=== PATIENT | female | born 1950 | race Caucasian/White ===

== ENCOUNTER 2019-03-26 11:24 | Emergency (ER) | payer MEDICARE, OTHER ==
--- OUTSIDE RECORDS SUMMARY | 2019-03-26 11:43 | XMS REPORT | Continuity of Care Document ---
:1950 External Reference #:[id number] Author Name Stephanie Smiley PA Address [address] [place] [address]. 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 Benign essential hypertension Lexi Adames, MSN, Onset: 10/05/2012 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 Malaise and fatigue Lexi Adames, LAYLA, Onset: 10/05/2012 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 Electrocardiogram abnormal Lexi Adames, LAYLA, Onset: 10/05/2012 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 Social History Type Date Description Comments Sex Unknown Tobacco Use Start: Unknown Never Smoked Cigarettes ETOH Use Denies alcohol use Tobacco Use Start: Unknown Patient has never smoked Smoking Status Reviewed: 03/08/19 Patient has never smoked Allergies, Adverse Reactions, Alerts Active Allergies Reaction Severity Comments Date Penicillin 10/05/2012 Sulfa Drugs 10/05/2012 Ceclor 10/05/2012 Medications Active Medications SIG Qnty Indications Ordering Date Provider Zoloft po qd Unknown 100mg Tablets Zocor 1 po qd 90tabs Unknown 40mg Tablets Nexium 1 po qd 90caps Unknown 40mg Capsules [address] Vitamin D3 1 po qd Unknown 1000Unit Capsules Trokendi XR 1 po qd Unknown 200mg Caps ER 24HR Meloxicam 1 by mouth every Unknown 15mg Tablets day Trokendi XR one every day Unknown 50mg Caps ER 24HR Cannabis Oil Capsules prn Unknown Buspirone HCL Take One Tablet Unknown 5mg Tablets By Mouth Twice A Day For Anxiety Mometasone Furoate [place] Two Sprays Unknown In Each Nostril 50mcg/Act Suspension Daily as Directed Triamcinolone Apply 1-2 Times Unknown Acetonide Daily To Left 0.1% Cream Hand prn For Itch Esomeprazole Magnesium Take One Capsule Unknown By Mouth Every 40mg Capsules DR Day Medications Administered in Office Medication SIG Qnty Indications Ordering Provider Date Depomedrol 40mg/1cc Stephanie Smiley PA 03/09/2019 (methylprednisolone acetate) Injection Immunizations Description No Information Available Vital Signs Date Vital Result Comment 03/09/2019 8:41am BP Systolic Sitting Left Arm 132 mmHg BP Diastolic Sitting Left Arm 86 mmHg Body Temperature 98.0 F Heart Rate 86 /min Height 60.5 inches 5'0.50" Weight 181.00 lb BMI (Body Mass Index) 34.8 kg/m2 BSA (Body Surface Area) 1.80 m2 [place] body weight in kilograms 47 kg O2 % BldC Oximetry 98 % 09/06/2015 10:08am BP Systolic Sitting Right Arm 130 mmHg BP Diastolic Sitting Right Arm 82 mmHg Heart Rate 68 /min Respiratory Rate 16 /min Height 61 inches 5'1" Weight 189.00 lb BMI (Body Mass Index) 35.7 kg/m2 BSA (Body Surface Area) 1.84 m2 Results Description No Information Available Procedures Date Code Description Status 03/09/2019 76445 Radiology, Knee 3 Views Completed 03/09/2019 48675 Asp./Injection major joint Completed 08/28/2012 62785953 Mammogram Completed Medical Devices Description No Information Available Encounters Type Date Location Provider Dx Diagnosis Office Visit 03/09/2019 [facility] Stephanie Smiley, M25.562 Pain in left knee 8:45a CLARITZA M17.12 Unilateral primary osteoarthritis, left knee Assessments Date Code Description Provider 03/09/2019 M25.562 Pain in left knee Stephanie Smiley PA 03/09/2019 M17.12 Unilateral primary osteoarthritis, left knee Stephanie Smiley PA Plan of Treatment Future Appointment(s):04/20/2019 8:30 am - Stephanie Smiley PA at [facility]/09/2019 - Stephanie Smiley, PAM25.562 Pain in left kneeM17.12 Unilateral primary osteoarthritis, left kneeComments:I have explained that she does have arthritis in her knee, but we will proceed with conservative management at this time especially since she has a D&C coming up. She is not to be using any oral anti-inflammatories for the next 10 days because of this procedure. I have recommended a steroid injection and she does wish to proceed, verbal consent was obtained for a left knee injection. Patient was injected today into the left knee with 80 mg Depo-Medrol and 6 cc of 0.5% Marcaine after sterile prep with chlorhexidine. Patient tolerated the injection well and was dressed with a Band-Aid. I also provided her with information regarding Euflexxa injections. She'll start a course of physical therapy and a brace was provided. Patient will return to the office for recheck in 6 weeks. Functional Status Functional Condition Comment Date Status Independent with all ADL's Active Glasses Active Mental Status Description No Information Available Referrals Description No Information Available
--- OUTSIDE RECORDS SUMMARY | 2019-03-26 11:43 | XMS REPORT | Continuity of Care Document ---
:1950 External Reference #:[id number] Author Name CLARITZA Carmen (transmitted by agent of provider Demarcus Thorpe) Address [address] [place] [address] Care Team Providers Name Role Phone Robel Garcia MD - Care Team Information Quality Control Auditor [phone] Cardiovascular Disease Alannah Negron PA - Physician Military Science Teacher Care Team Information Quality Control Auditor Hector Medellin MD - Nephrology Care Team Information Quality Control Auditor [phone] Jim Zaragoza MD - Dermatology Care Team Information Quality Control Auditor Garry Gordon MD - Urology Care Team Information Quality Control Auditor [phone] Mode Pisano MD - Orthopaedic Care Team Information Quality Control Auditor [phone] Surgery Madelin Coello M.D. - Adult Care Team Information Quality Control Auditor [phone] Reconstructive Orthopaedic Surgery Oscar Johnson MD - Orthopaedic Care Team Information Quality Control Auditor [phone] Surgery Trell Nowak MD - Cardiovascular Care Team Information Quality Control Auditor Disease [place], [place] MD Eliana - Gynecology Care Team Information Quality Control Auditor [phone] Problems Active Problems Provider Date Localized, primary osteoarthritis Madelin Coello M.D. Onset: 07/21/2015 Arthroplasty of knee Madelin Coello M.D. Onset: 12/22/2015 Localized, primary osteoarthritis of the pelvic Madelin Coello M.D. Onset: region and thigh Anxiety state Alannah Negron PA Onset: 05/02/2011 Benign essential hypertension Alannah Negron PA Onset: 05/02/2011 Gastroesophageal reflux disease Alannah Negron PA Onset: 05/02/2011 Hyperlipidemia Alannah Negron PA Onset: 05/02/2011 Irritable bowel syndrome Alannah Negron PA Onset: 05/02/2011 Diverticular disease of colon Onset: 05/02/2011 Pure hypercholesterolemia Onset: 05/02/2011 Allergic rhinitis CLARITZA Carmen Onset: 09/07/2018 Hearing loss CLARITZA Carmen Onset: 09/07/2018 Social History Type Date Description Comments Sex Unknown Tobacco Use Start: Unknown Never Smoked Cigarettes ETOH Use Never used alcohol Tobacco Use Reviewed: 03/05/16 Patient has never smoked Recreational Drug Use Denies Drug Use Smoking Status Reviewed: 03/04/19 Patient has never smoked Exercise Type/Frequency Does not exercise Tattoo/Piercing Pierced ears Tattoo/Piercing Negative For Tattoo Allergies, Adverse Reactions, Alerts Active Allergies Reaction Severity Comments Date Cefaclor 07/09/2011 Sulfa Antibiotics 07/21/2015 Penicillin 07/21/2015 Medications Active Medications SIG Qnty Indications Ordering Provider Date Avapro 1 by mouth every 90tabs I10 Chang 02/19/2018 150mg Tablets day MD Jorge Buspirone HCL one tablet twice 180tabs F41.9 Chang 12/08/2017 5mg a day for anxiety MD Jorge Tablets Xyzal Allergy 24HR one pill daily 30tabs J30.9 Chang 06/05/2017 MD Jorge 5mg Tablets Mobic one every day 14tabs S86.912A Jorge 06/04/2016 15mg Tablets with food MD Chang Mometasone Furoate [place] Two Sprays 51units J30.9 Chang 03/05/2016 In Each Nostril MD Jorge 50mcg/Act Suspension Daily as Directed Sertraline HCL Take One Tablet 90tabs F41.1 Chang 06/01/2013 100mg By Mouth Every MD Jorge Tablets Day Diovan 1 by mouth every Unknown 320mg Tablets day Zoloft 1 by mouth every Unknown 100mg Tablets day Vitamin D-3 1 by mouth every Unknown 1000Unit day Capsules Nexium 1 by mouth every 90caps Chang 40mg Capsules day MD DR Radha Patel XR 1 at bedtime Unknown 200mg Caps ER 24HR Trokendi XR take 1 at bedtime Unknown 50mg Caps ER 24HR Calcium 600 1 by mouth every Unknown 600mg day Tablets Zocor 1 by mouth every 90tabs Chang 40mg Tablets night at bedtime MD Jorge Medications Administered in Office Medication SIG Qnty Indications Ordering Provider Date Depomedrol 40MG Madelin Coello M.D. 05/15/2016 Injection Allergy Injection - Multiple Unknown 04/17/1999 Injection Allergy Injection - Multiple Unknown 04/02/1999 Injection Allergy Injection - Multiple Chang Patel MD 03/13/1999 Injection Allergy Injection - Multiple Unknown 03/06/1999 Injection Allergy Injection - Multiple Unknown 02/26/1999 Injection Allergy Injection - Multiple Unknown 02/19/1999 Injection Allergy Injection - Multiple Unknown 01/22/1999 Injection Allergy Injection - Multiple Unknown 01/12/1999 Injection Allergy Injection - Multiple Chang Patel MD 12/22/1998 Injection Allergy Injection - Multiple Unknown 12/08/1998 Injection Allergy Injection - Multiple Unknown 12/01/1998 Injection Allergy Injection - Multiple Unknown 11/22/1998 Injection Allergy Injection - Multiple Unknown 11/16/1998 Injection Allergy Injection - Multiple Unknown 10/27/1998 Injection Allergy Injection - Multiple Unknown 10/12/1998 Injection Allergy Injection - Multiple Chang Patel MD 10/05/1998 Injection Allergy Injection - Multiple Unknown 09/07/1998 Injection Allergy Injection - Multiple Unknown 08/24/1998 Injection Allergy Injection - Multiple Unknown 08/17/1998 Injection Allergy Injection - Multiple Unknown 08/10/1998 Injection Allergy Injection - Multiple Unknown 07/20/1998 Injection Allergy Injection - Annabella Patel MD 07/07/1998 Injection Allergy Injection - Multiple Unknown 06/29/1998 Injection Allergy Injection - Annabella Patel MD 06/15/1998 Injection Allergy Injection - Multiple Chang Patel MD 06/08/1998 Injection Immunizations CPT Code Status Date Vaccine Lot # 47084 Given 03/15/2016 Fluzone High Dose 87755 Given 12/01/2014 Pneumococcal Conjugate Vaccine 13 Valent For Intramuscular Use 33407 Given 06/17/2012 Influenza Virus 3Yrs & Over 38878 Given 04/12/1997 Flu Vaccine 27802 Given 04/12/1993 Flu Vaccine Vital Signs Date Vital Result Comment 03/04/2019 12:59pm Height 60 inches 5'0" Weight 180.00 lb BP Systolic Sitting 108 mmHg BP Diastolic Sitting 50 mmHg Respiratory Rate 12 /min Body Temperature 97.8 F BMI (Body Mass Index) 35.1 kg/m2 12/08/2018 1:00pm Weight 181.38 lb BP Systolic Sitting 124 mmHg BP Diastolic Sitting 60 mmHg Results Description No Information Available Procedures Date Code Description Status 06/12/2018 35113742 Mammogram Completed 08/28/2017 [id number] Bone Mineral Density Test Completed 06/30/2010 80175431 Colonoscopy Completed Medical Devices Description No Information Available Encounters Type Date Location Provider Dx Diagnosis Office Visit 12/08/2018 [facility] CLARITZA Carmen I10 Essential ( primary) 1:00p hypertension E78.5 Hyperlipidemia, unspecified J30.89 Other allergic rhinitis F41.9 Anxiety disorder, unspecified Office Visit 09/22/2018 [facility] Dermatology Jim Zaragoza, B02.9 Zoster without 12:50p AT [place] complications D22.9 Melanocytic nevi, unspecified L82.1 Other seborrheic keratosis Z08 Encntr for follow-up exam after trtmt for malignant neoplasm Z85.828 Personal history of other malignant neoplasm of skin Office Visit 09/07/2018 1:00p [facility] Primary Alannah Negron K21.9 Gastro- esophageal Care [place] reflux disease without esophagitis E78.5 Hyperlipidemia, unspecified J30.89 Other allergic rhinitis M19.90 Unspecified osteoarthritis, unspecified site Assessments Date Code Description Provider 03/04/2019 Z01.818 Encounter for other preprocedural examination CLARITZA Carmen 03/04/2019 N95.0 Postmenopausal bleeding CLARITZA Carmen 12/08/2018 I10 Essential (primary) hypertension CLARITZA Carmen 12/08/2018 E78.5 Hyperlipidemia, unspecified CLARITZA Carmen 12/08/2018 J30.89 Other allergic rhinitis CLARITZA Carmen 12/08/2018 F41.9 Anxiety disorder, unspecified CLARITZA Carmen 09/22/2018 B02.9 Zoster without complications Jim Zaragoza MD 09/22/2018 D22.9 Melanocytic nevi, unspecified Jim Zaragoza MD 09/22/2018 L82.1 Other seborrheic keratosis Jim Zaragoza MD 09/22/2018 Z08 Encounter for follow-up examination after Jim Zaragoza MD completed treatmen 09/22/2018 Z85.828 Personal history of other malignant neoplasm of Jim Zaragoza MD skin 09/07/2018 K21.9 Gastro-esophageal reflux disease without CLARITZA Carmen esophagitis 09/07/2018 E78.5 Hyperlipidemia, unspecified CLARITZA Carmen 09/07/2018 J30.89 Other allergic rhinitis CLARITZA Carmen 09/07/2018 M19.90 Unspecified osteoarthritis, unspecified site CLARITZA Carmen Plan of Treatment Future Appointment(s):04/07/2019 8:15 am - CLARITZA Carmen at [facility] 2:00 pm - Jim Zaragoza MD at [facility] Dermat[facility] AT [facility]14/05/2019 - Alannah Negron PAZ01.818 Encounter for other preprocedural examinationNew Labs:CBC Auto Diff, Ordered: 03/04/19Basic Metabolic Panel, Ordered: 03/04/19New Orders: EKG, Ordered: 03/04/19N95.0 Postmenopausal bleeding Functional Status Functional Condition Comment Date Status Partial upper dentures Active Bifocal glasses Active Hearing Aid in Both ears Active Mental Status Description No Information Available Referrals Description No Information Available
--- OUTSIDE RECORDS SUMMARY | 2019-03-26 11:43 | XMS REPORT | Continuity of Care Document ---
:1950 External Reference #:[id number] Author Name CLARITZA Carmen (transmitted by agent of provider Demarcus Thorpe) Address [address] [place] [address] Care Team Providers Name Role Phone Robel Garcia MD - Care Team Information Collar Cutter [phone] Cardiovascular Disease Alannah Negron PA - Physician Banking Services Officer Care Team Information Collar Cutter Hector Medellin MD - Nephrology Care Team Information Collar Cutter Jim Zaragoza MD - Dermatology Care Team Information Collar Cutter Garry Gordon MD - Urology Care Team Information Collar Cutter [phone] Mode Pisano MD - Orthopaedic Care Team Information Collar Cutter [phone] Surgery Madelin Coello M.D. - Adult Care Team Information Collar Cutter [phone] Reconstructive Orthopaedic Surgery Oscar Johnson MD - Orthopaedic Care Team Information Collar Cutter Surgery Trell Nowak MD - Cardiovascular Care Team Information Collar Cutter Disease [place], [place] MD Eliana - Gynecology Care Team Information Collar Cutter [phone] Problems Active Problems Provider Date Localized, primary [...] Medications SIG Qnty Indications Ordering Provider Date CBD Oil Chang 03/08/2019 MD Jorge Avapro 1 by mouth every 90tabs I10 Chang 02/19/2018 150mg Tablets day MD Jorge Buspirone HCL one tablet twice 180tabs F41.9 Chang 12/08/2017 5mg a day for anxiety MD Jorge Tablets Xyzal Allergy 24HR one pill daily 30tabs J30.9 Chang 06/05/2017 MD Jorge 5mg Tablets Mobic one every day 14tabs S86.912A Jorge 06/04/2016 15mg Tablets with food MD Chang Mometasone Furoate [place] Two Sprays 51units J30.9 Chang 03/05/2016 In [...] Multiple Unknown 07/20/1998 Injection Allergy Injection - Multiple Chang Patel MD 07/07/1998 Injection Allergy Injection - Multiple Unknown 06/29/1998 Injection Allergy Injection - Multiple Chang Patel MD 06/15/1998 Injection Allergy Injection - Multiple Chang Patel MD 06/08/1998 Injection Immunizations CPT Code Status Date Vaccine Lot # [id number] Given 03/15/2016 Fluzone High Dose 94354 Given 12/01/2014 Pneumococcal Conjugate Vaccine 13 Valent For Intramuscular Use 38342 Given 06/17/2012 Influenza Virus 3Yrs & Over 07531 Given 04/12/1997 Flu Vaccine 95461 Given 04/12/1993 Flu Vaccine Vital Signs Date Vital Result Comment 03/04/2019 12:59pm Height 60 inches 5'0" Weight 180.00 lb BP Systolic Sitting 108 mmHg BP Diastolic Sitting 50 mmHg Respiratory Rate 12 /min Body Temperature 97.8 F BMI (Body Mass Index) 35.1 kg/m2 12/08/2018 1:00pm Weight 181.38 lb BP Systolic Sitting 124 mmHg BP Diastolic Sitting 60 mmHg Results Test Date Facility Test Result H/L Range Note CBC Auto 03/04/2019 [facility] White Blood 3.6 10^3/uL Normal 3.5-10.[address] [place] [address] [phone] Red Blood Count 4.51 10^6/uL Normal 3.70-4.87 Hemoglobin 13.3 g/dL Normal 12.0-16.0 Hematocrit 39 % Normal 35-47 Mean Corpuscular Volume 87 fL Normal 80-97 Mean Corpuscular Hemoglobin 30 pg Normal 27-31 Mean Corpuscular HGB Conc 34 g/dL Normal 31-36 Red Cell Distribution Width 14 % Normal 10-15 Platelet Count 100 10^3/uL Low 150-450 Mean Platelet Volume 9.3 fL Normal 7.4-10.4 Abs Neutrophils 2.2 10^3/uL Normal 1.5-7.7 Abs Lymphocytes 1.0 10^3/uL Normal 1.0-4.8 Abs Monocytes 0.2 10^3/uL Normal 0-0.8 Abs Eosinophils 0.2 10^3/uL Normal 0-0.6 Abs Basophils 0.0 10^3/uL Normal 0-0.2 Abs Nucleated RBC 0.0 10^3/uL Granulocyte % 61.3 % Lymphocyte % 27.1 % Monocyte % 6.8 % Eosinophil % 4.1 % Basophil % 0.7 % Nucleated Red Blood Cells % 0.2 Basic Metabolic 03/04/2019 [facility] Sodium 142 mmol/L Normal 135-[address] [place] [address] [phone] Potassium 4.2 mmol/L Normal 3.5-5.0 Co2 Carbon Dioxide 26 mmol/L Normal 22-32 Glucose 102 mg/dL High 70-100 Blood Urea Nitrogen 29 mg/dL High 6-24 Creatinine 0.99 mg/dL High 0.51-0.95 BUN/Creatinine Ratio 29.3 High 8-20 Calcium 9.2 mg/dL Normal 8.6-10.3 Egfr Non- 55.6 >60 Egfr 67.3 >60 1 Chloride 112 mmol/L High 101-111 Anion Gap 4 mmol/L Normal 2-11 1 Because ethnic data is not always readily available, this report includes an eGFR for both -Americans and non- Americans. The National Kidney Disease Education Program (NKDEP) does not endorse the use of the MDRD equation for patients that are not between the ages of 18 and 70, are , have extremes of body size, muscle mass, or nutritional status, or are non- or non-. According to the National Kidney Foundation, irrespective of diagnosis, the stage of the disease is based on the level of kidney function: Stage Description GFR(mL/min/1.73 m(2)) 1 Kidney damage with normal or decreased GFR 90 2 Kidney damage with mild decrease in GFR 60-89 3 Moderate decrease in GFR 30-59 4 Severe decrease in GFR 15-29 5 Kidney failure <15 (or dialysis) Procedures Date Code Description Status 03/04/2019 12034 EKG Tracing & Interpretation Completed 06/12/2018 [id number] Mammogram Completed 08/28/2017 276571610 Bone Mineral Density Test Completed 06/30/2010 98227947 Colonoscopy Completed Medical Devices Description No Information Available Encounters Type Date Location Provider Dx Diagnosis Office Visit 03/04/2019 [facility] CLARITZA Carmen Z01.818 Encounter for other 1:00p preprocedural examination N95.0 Postmenopausal bleeding I10 Essential (primary) hypertension E78.5 Hyperlipidemia, unspecified J30.89 Other allergic rhinitis F43.23 Adjustment disorder with mixed anxiety and depressed mood M19.90 Unspecified osteoarthritis, unspecified site K21.9 Gastro-esophageal reflux disease without esophagitis Office Visit 12/08/2018 1:00p [facility] Primary Care CLARITZA Carmen I10 Essential (primary) hypertension E78.5 Hyperlipidemia, unspecified J30.89 Other allergic rhinitis F41.9 Anxiety disorder, unspecified Office Visit 09/22/2018 [facility] Dermatology Jim Zaragoza, B02.9 Zoster without 12:50p AT [place] complications D22.9 Melanocytic nevi, unspecified L82.1 Other seborrheic keratosis Z08 Encntr for follow-up exam after trtmt for malignant neoplasm Z85.828 Personal history of other malignant neoplasm of skin Assessments Date Code Description Provider 03/04/2019 Z01.818 Encounter for other preprocedural examination CLARITZA Carmen 03/04/2019 N95.0 Postmenopausal bleeding CLARITZA Carmen 03/04/2019 I10 Essential (primary) hypertension CLARITZA Carmen 03/04/2019 E78.5 Hyperlipidemia, unspecified CLARITZA Carmen 03/04/2019 J30.89 Other allergic rhinitis CLARITZA Carmen 03/04/2019 F43.23 Adjustment disorder with mixed anxiety and CLARITZA Carmen depressed mood 03/04/2019 M19.90 Unspecified osteoarthritis, unspecified site CLARITZA Carmen 03/04/2019 K21.9 Gastro-esophageal reflux disease without CLARITZA Carmen esophagitis 12/08/2018 I10 Essential (primary) hypertension CLARITZA Carmen [...] malignant neoplasm of Jim Zaragoza MD skin Plan of Treatment Future Appointment(s):04/07/2019 8:15 am - CLARITZA Carmen at [facility] Primary Care 2:00 pm - Jim Zaragoza MD at [facility] Dermatology AT Kgwvpdzc57/05/2019 - Alannah Negron PAZ01.818 Encounter for other preprocedural examinationNew Orders:EKG , Ordered: 03/04/19N95.0 Postmenopausal svxeisseQ29 Essential (primary) kudlhqjnuhcwG35.5 Hyperlipidemia, lpnzmguuhuzQ57.89 Other allergic lgwkkuraZ05.23 Adjustment disorder with mixed anxiety and depressed moodM19.90 Unspecified osteoarthritis, unspecified siteK21.9 Gastro-esophageal reflux disease without esophagitis Functional Status Functional Condition Comment Date Status Partial upper dentures Active Bifocal glasses Active Hearing Aid in Both ears Active Mental Status Description No Information Available Referrals Description No Information Available
[2019-03-26 11:46] VITALS: BP 145/73
--- NOTE | 2019-03-26 12:19 | UC ---
Complaint Female HPI - HPI Summary HPI Summary: Pt presents with c/o burning with urination X 5 days. Pt had D&C at [facility] on 03/18/19. pt reports that she has had urinary frequencya nd dysuria since procedure. - History Of Current Complaint Chief Complaint: UCGU Stated Complaint: URINARY Time Seen by Provider: 03/26/19 12:04 Hx Obtained From: Patient ?: No Onset/Duration: Sudden Onset, Lasting Days, Still Present Timing: Constant Severity Initially: Mild Severity Currently: Mild Pain Intensity: 1 Character: Dull, Burning Aggravating Factor(s): Urination Alleviating Factor(s): Nothing Associated Signs And Symptoms: Positive: Back Pain - Risk Factors Ectopic Risk Factor: Prior Pelvic Surgery Ovarian Torsion Risk Factor: Negative - Allergies/Home Medications Allergies/Adverse Reactions: Allergies Allergy/AdvReac Type Severity Reaction Status Date / Time Penicillins Allergy Anaphylatic Verified 03/26/19 11:48 Shock Sulfa (Sulfonamide Allergy Hives Verified 03/26/19 11:48 Antibiotics) LATEX POWDER Allergy HIVES FROM Uncoded 03/26/19 11:48 POWDER IN LATEX GLOVES Home Medications: Home Medications Buspirone HCl 5 mg PO BID 03/26/19 [History Confirmed 03/26/19] Cholecalciferol (Vitamin D3) [Vitamin D3] 1,000 unit PO DAILY 03/26/19 [History Confirmed 03/26/19] Topiramate [Topiramate ER 200 mg cap] 200 mg PO BEDTIME 03/26/19 [History Confirmed 03/26/19] PMH/Surg Hx/FS Hx/Imm Hx Previously Healthy: Yes Other GI/ History: D&C on 03/18/19 - Surgical History Surgical History: Yes Surgery Procedure, Year, and Place: 1999 LEFT KNEE SCOPE [place]. 2007 C5-6 CERVICAL FUSION [place]. [address] [facility], Abdominal hernia repair 09/17/13,D&C-02/2019, right knee 2015 - Family History Known Family History: Positive: Cardiac Disease - Social History Occupation: Retired Lives: With Family Alcohol Use: None Substance Use Type: None Smoking Status (MU): Never Smoked Tobacco Have You Smoked in the Last Year: No - Immunization History Most Recent Influenza Vaccination: 2012 Most Recent Tetanus Shot: 2012 Most Recent Pneumonia Vaccination: 2010 Vaccination Up to Date: Yes Review of Systems All Other Systems Reviewed And Are Negative: Yes Constitutional: Positive: Negative Skin: Positive: Negative Eyes: Positive: Negative ENT: Positive: Negative Respiratory: Positive: Negative Cardiovascular: Positive: Negative Gastrointestinal: Positive: Negative Genitourinary: Positive: Dysuria, Urgency Motor: Positive: Negative Neurovascular: Positive: Negative Musculoskeletal: Positive: Other: - low back ache Neurological: Positive: Negative Psychological: Positive: Negative Is Patient Immunocompromised?: No Physical Exam Triage Information Reviewed: Yes Appearance: Well-Appearing Vital Signs: Initial Vital Signs Temp 97.9 F 03/26/19 11:40 Pulse 58 03/26/19 11:40 Resp 16 03/26/19 11:40 BP 145/73 03/26/19 11:40 Pulse Ox 100 03/26/19 11:40 Vital Signs Reviewed: Yes Eye Exam: Normal ENT Exam: Normal Dental Exam: Normal Neck exam: Normal Respiratory Exam: Normal Cardiovascular Exam: Normal Abdominal Exam: Normal Abdomen Description: Positive: Nontender Musculoskeletal Exam: Normal Neurological Exam: Normal Psychological Exam: Normal Skin Exam: Normal Complaint Female Dx - Differential Dx/Diagnosis Differential Diagnosis/HQI/PQRI: Urinary Tract Infection, Other - urethritis Provider Diagnosis: UTI (urinary tract infection), Dysuria Discharge ED - Sign-Out/Discharge Documenting (check all that apply): Patient Departure All imaging exams completed and their final reports reviewed: No Studies - Discharge Plan Condition: Stable Disposition: HOME Prescriptions: Nitrofurantoin Monohyd/M-Cryst [Macrobid 100 mg Capsule] 100 mg PO Q12H #14 cap Patient Education Materials: Urinary Tract Infection in Women (ED) Referrals: Chang Patel MD [Primary Care Provider] - If Needed Additional Instructions: Please follow up with your PCP and your Satellite Tv Installer provider as needed. - Billing Disposition and Condition Condition: STABLE Disposition: Home - Attestation Statements Provider Attestation: I was available for consult. This patient was seen by the DEEPA. The patient was not presented to, seen by, or examined by me. Luis Kaufman MD
--- NOTE | 2019-03-28 07:22 | UC ---
- Progress Note Progress Note: Urine culture was negative. Sx were following a Doubler Operator procedure, recommend she finish all the antibiotics. If still with sx, follow up with Doubler Operator provider. Course/Dx - Diagnoses Provider Diagnoses: UTI (urinary tract infection), Dysuria Discharge ED - Sign-Out/Discharge Documenting (check all that apply): Post-Discharge Follow Up All imaging exams completed and their final reports reviewed: No Studies - Discharge Plan Condition: Stable Disposition: HOME Prescriptions: Nitrofurantoin Monohyd/M-Cryst [Macrobid 100 mg Capsule] 100 mg PO Q12H #14 cap Patient Education Materials: Urinary Tract Infection in Women (ED) Referrals: Chang Patel MD [Primary Care Provider] - If Needed Additional Instructions: Please follow up with your PCP and your Doubler Operator provider as needed. - Billing Disposition and Condition Condition: STABLE Disposition: Home
== END 2019-03-26 12:29 | disposition home or self-care (01) ==
LOC: UCCORT 11:24
DX: N39.0 Urinary tract infection, site not specified (principal); Z88.0 Allergy status to penicillin; Z88.2 Allergy status to sulfonamides
CPT/HCPCS: 81003; 87086; 99212; G0463

== ENCOUNTER 2019-07-24 17:05 | Emergency (ER) | payer MEDICARE, OTHER ==
--- OUTSIDE RECORDS SUMMARY | 2019-07-24 17:14 | XMS REPORT | Continuity of Care Document ---
:1950 External Reference #:[id number] Author Name Inez Neely, FELLING MACHINE OPERATOR Address [address] [place] [id number] Care Team Providers Name Role Phone Alannah Negron PA - Physician Dipper Fish Care Team Information Cost Control Specialist [phone] Problems Active Problems Provider Date Localized, primary osteoarthritis Stephanie Smiley PA Onset: 03/09/2019 Essential hypertension Ralph Wesley MD Onset: 09/06/2015 Neuralgia Adam Carranza, Onset: 11/18/2012 [place] Incisional hernia Adam Carranza, Onset: 11/18/2012 [place] Preoperative cardiovascular Trell Nowak M.D., Onset: 10/20/2012 examination FACC Hyperlipidemia Lexi Adames, LAYLA, Onset: 10/05/2012 FELLING MACHINE OPERATOR Benign essential hypertension Lexi Adames, MSN, Onset: 10/05/2012 FELLING MACHINE OPERATOR Malaise and fatigue Lexi Adames MSN, Onset: 10/05/2012 FELLING MACHINE OPERATOR Electrocardiogram abnormal Lexi Adames, LAYLA, Onset: 10/05/2012 FELLING MACHINE OPERATOR Social History Type Date Description Comments Sex Unknown Tobacco Use Start: Unknown Never Smoked Cigarettes ETOH Use Denies alcohol use Tobacco Use Start: Unknown Patient has never smoked Recreational Drug Use Denies Drug Use Smoking Status Reviewed: 07/22/19 Patient has never smoked Allergies, Adverse Reactions, Alerts Active Allergies Reaction Severity Comments Date Penicillin 10/05/2012 Sulfa Drugs 10/05/2012 Ceclor 10/05/2012 Medications Active Medications SIG Qnty Indications Ordering Date Provider Nitrofurantoin one cap twice a 10caps N39.0 [facility], 07/22/2019 Monohyd Macro day x 5 days Inez M., 100mg FELLING MACHINE OPERATOR Capsules Hydrocortisone use one 24units K64.9 [facility], 07/22/2019 Acetate suppository up to Inez M., 30mg three times a day FELLING MACHINE OPERATOR Suppository as needed for hemorroids Fluticasone use 2 sprays in 15.800ml J06.9 [facility], 06/01/2019 Propionate Nasal each nostril in Inez M., [place] Allergy Relief the am FELLING MACHINE OPERATOR 24- Hour 50mcg/Act Suspension Benzonatate take one tab 30caps J06.9 [facility], 06/01/2019 100mg orally three times [facility], Capsules a day as needed FELLING MACHINE OPERATOR for cough Diclofenac Sodium 1 by mouth twice a 180tabs M17.12 Elyse Coy, 2018 50mg day mdd 2 MD Tablets Progesterone 1 tab by mouth Unknown Micronized every day 200mg Capsules Esomeprazole Take One Capsule Unknown Magnesium By Mouth Every Day 40mg Capsules Triamcinolone Apply 1-2 Times Unknown Acetonide Daily To Left Hand 0.1% Cream prn For Itch Mometasone Furoate [place] Two Sprays Unknown In Each Nostril 50mcg/Act Suspension Daily as Directed Buspirone HCL Take One Tablet By Unknown 5mg Mouth Twice A Day Tablets For Anxiety Cannabis Oil Capsules prn Unknown Trokendi XR one every day Unknown 50mg Caps ER 24HR Trokendi XR 1 po qd Unknown 200mg Caps ER 24HR Vitamin D3 1 po qd Unknown 1000Unit Capsules Nexium 1 po qd 90caps Unknown 40mg Capsules Zocoyulisa 1 po qd 90tabs Unknown 40mg Tablets Zoloft po qd Unknown 100mg Tablets Medications Administered in Office Medication SIG Qnty Indications Ordering Provider Date Depomedrol 40mg/1cc Stephanie Smiley PA 06/15/2019 (methylprednisolone acetate) Injection Euflexxa 2mL prefilled syringe Stephanie Smiley PA 05/05/2019 Injection Euflexxa 2mL prefilled syringe Stephanie Smiley PA 04/27/2019 Injection Euflexxa 2mL prefilled syringe Stephanie Smiley PA 04/20/2019 Injection Depomedrol 40mg/1cc Stephanie Smiley PA 03/09/2019 (methylprednisolone acetate) Injection Immunizations Description No Information Available Vital Signs Date Vital Result Comment 07/22/2019 1:18pm BP Systolic 145 mmHg BP Diastolic 94 mmHg Body Temperature 97.9 F Heart Rate 87 /min Respiratory Rate 18 /min Weight 192.19 lb Pain Level 0 O2 % BldC Oximetry 100 % 06/15/2019 1:07pm BP Systolic Sitting Left Arm 155 mmHg BP Diastolic Sitting Left Arm 93 mmHg Results Test Acquired Date Facility Test Result H/L Range Note Urine Dipstick 07/22/2019 [facility] Ua Color dark yellow Yellow Ua Clarity cloudy Clear Ua Leuko 3+ High Negative Ua Nitrite + Negative Ua Urobilinogen neg Low 0.2 - 1.0 E.U./dL Ua Protein 2+ High Negative Ua PH 2.0 Low 6.5-7.5 Ua Blood 3+ High Negative Ua Specific [place] 1.025 1.010-1.030 Ua Ketones neg Negative Ua Bilirubin neg Negative Ua Glucose neg Negative Procedures Date Code Description Status 06/15/2019 Asp./Injection major joint Completed 05/05/2019 Asp./Injection major joint Completed 04/27/2019 Asp./Injection major joint Completed 04/20/2019 Asp./Injection major joint Completed 03/09/2019 27207 Radiology, Knee 3 Views Completed 03/09/2019 Asp./Injection major joint Completed 08/28/2012 [id number] Mammogram Completed Medical Devices Description No Information Available Encounters Type Date Location Provider Dx Diagnosis Office Visit 07/22/2019 [facility] N39.0 Urinary tract 1:15p TEODORA Munguia infection, site not specified R30.0 Dysuria K64.9 Unspecified hemorrhoids Office Visit 06/15/2019 Orthopa[facility] Baljit M17.12 Unilateral primary 1:15p Office CLARITZA Brown osteoarthritis, left knee M25.562 Pain in left knee Office Visit 06/01/2019 [facility] [place], J06.9 Acute upper 9:45a Inez Bautista, FELLING MACHINE OPERATOR respiratory infection, unspecified Office Visit 04/20/2019 Orthopaedic Stephanie Smiley, M17.12 Unilateral 8:30a Office PA primary osteoarthritis, left knee Office Visit 03/09/2019 Orthopaedic Stephanie Smiley, M25.562 Pain in left 8:45a Office PA knee M17.12 Unilateral primary osteoarthritis, left knee Assessments Date Code Description Provider 07/22/2019 N39.0 Urinary tract infection, site not Inez Neely , FELLING MACHINE OPERATOR specified 07/22/2019 R30.0 Dysuria Inez Neely, FELLING MACHINE OPERATOR 07/22/2019 K64.9 Unspecified hemorrhoids Inez Neely, FELLING MACHINE OPERATOR 06/15/2019 M17.12 Unilateral primary osteoarthritis, Stephanie Smiley, CLARITZA left knee 06/15/2019 M25.562 Pain in left knee Stephanie Smiley PA 06/01/2019 J06.9 Acute upper respiratory infection, Inez Neely, FELLING MACHINE OPERATOR unspecified 05/05/2019 M17.12 Unilateral primary osteoarthritis, Stephanie Smiley, CLARITZA left knee 04/27/2019 M17.12 Unilateral primary osteoarthritis, Stephanie Smiley, CLARITZA left knee 04/20/2019 M17.12 Unilateral primary osteoarthritis, Stephanie Smiely, PA left knee 03/09/2019 M25.562 Pain in left knee Stephanie Smiley PA 03/09/2019 M17.12 Unilateral primary osteoarthritis, Stephanie Smiley, CLARITZA left knee Plan of Treatment Future Appointment(s):09/15/2019 1:30 pm - Stephanie Smiley PA at Orthopa[facility] Ogzoc[facility]5107/22/2019 - Inez Neely, FNPN39.0 Urinary tract infection, site not specifiedNew Medication:Nitrofurantoin Monohyd Macro 100 mg - one cap twice a day x 5 daysComments:Take antibiotic as directed, Drink plenty of water. Do not delay urinating when you feel the need tourinate. Wipe from front to back to keep rectal bacteria from getting into the vagina and urethra. Avoid using irritating cosmetics or chemicals in the area of the vagina and urethra ( such as strong soaps, feminine hygiene sprays or douches, or scented napkins). Empty your bladder completely when youurinate. If new or worsening symptoms such as high fever or vomiting occur then go to the ER for evaluation, otherwise followup with your primary doctor within 5 days for recheck.R30.0 UitjbkxB74.9 Unspecified hemorrhoidsNew Medication:Hydrocortisone Acetate 30 mg - use one suppository up to three times a day as needed for hemorroidsComments: Continue with sitz baths if helpful, keep area clean and dry, follow up with PCP for referral to surgery Functional Status Functional Condition Comment Date Status Independent with all ADL's Active Glasses Active Mental Status Description No Information Available Referrals Description No Information Available
--- OUTSIDE RECORDS SUMMARY | 2019-07-24 17:15 | XMS REPORT | Continuity of Care Document ---
:1950 External Reference #:[id number] Author Name Stephanie Smiley PA Address [address] [place] [address]. [place] [address] Care Team Providers Name Role Phone Alannah Negron PA - Physician Ship Joiner Care Team Information Clinical Quality Rn Problems Active Problems Provider Date Localized, primary osteoarthritis Stephanie Smiley PA Onset: 03/09/2019 Essential hypertension Ralph Wesley MD Onset: 09/06/2015 Neuralgia Adam Carranza, Onset: 11/18/2012 [place] Incisional hernia Adam Carranza, Onset: 11/18/2012 [place] Preoperative cardiovascular Trell Nowak M.D., Onset: 10/20/2012 examination FACC Hyperlipidemia Lexi Adames, MSN, Onset: 10/05/2012 BOARDMARKER Benign essential hypertension Lexi Adames, MSN, Onset: 10/05/2012 BOARDMARKER Malaise and fatigue Lexi Adames, LAYLA, Onset: 10/05/2012 BOARDMARKER Electrocardiogram abnormal Lexi Adames, LAYLA, Onset: 10/05/2012 BOARDMARKER Social History Type Date Description Comments Sex Unknown Tobacco Use Start: Unknown Never Smoked Cigarettes ETOH Use Denies alcohol use Tobacco Use Start: Unknown Patient has never smoked Recreational Drug Use Denies Drug Use Smoking Status Reviewed: 06/15/19 Patient has never smoked Allergies, Adverse Reactions, Alerts Active Allergies Reaction Severity Comments Date Penicillin 10/05/2012 Sulfa Drugs 10/05/2012 Ceclor 10/05/2012 Medications Active Medications SIG Qnty Indications Ordering Date Provider Fluticasone use 2 sprays in 15.800ml J06.9 [facility], 06/01/2019 Propionate Nasal each nostril in Inez M., [place] Allergy Relief the am BOARDMARKER 24- Hour 50mcg/Act Suspension Benzonatate take one tab 30caps J06.9 [facility], 06/01/2019 100mg orally three Inez M., Capsules times a day as BOARDMARKER needed for cough Diclofenac Sodium 1 by mouth twice 180tabs M17.12 Elyse Coy, 2018 50mg a day mdd 2 MD Tablets Zolofsandy po qd Unknown 100mg Tablets Zocor 1 po qd 90tabs Unknown 40mg Tablets Nexium 1 po qd 90caps Unknown 40mg Capsules Vitamin D3 1 po qd Unknown 1000Unit Capsules Trokendi XR 1 po qd Unknown 200mg Caps ER 24HR Trokendi XR one every day Unknown 50mg Caps ER 24HR Cannabis Oil Capsules prn Unknown Buspirone HCL Take One Tablet Unknown 5mg By Mouth Twice A Tablets Day For Anxiety Mometasone Furoate [place] Two Sprays Unknown In Each Nostril 50mcg/Act Suspension Daily as Directed Triamcinolone Apply 1-2 Times Unknown Acetonide Daily To Left 0.1% Cream Hand prn For Itch Esomeprazole Take One Capsule Unknown Magnesium By Mouth Every 40mg Capsules Day Progesterone 1 tab by mouth Unknown Micronized every day 200mg Capsules Medications Administered in Office Medication SIG Qnty [...] Available Vital Signs Date Vital Result Comment 06/15/2019 1:07pm BP Systolic Sitting Left Arm 155 mmHg BP Diastolic Sitting Left Arm 93 mmHg 06/01/2019 9:49am BP Systolic 132 mmHg BP Diastolic 77 mmHg Body Temperature 97.9 F Heart Rate 89 /min Respiratory Rate 18 /min Weight 179.50 lb Pain Level 0 O2 % BldC Oximetry 97 % Results Description No Information Available Procedures Date Code Description Status 06/15/2019 Asp./Injection major joint Completed 05/05/2019 Asp./Injection major joint Completed 04/27/2019 Asp./Injection major joint Completed 04/20/2019 Asp./Injection major joint Completed 03/09/2019 84284 Radiology, Knee 3 Views Completed 03/09/2019 Asp./Injection major joint Completed 08/28/2012 [id number] Mammogram Completed Medical Devices Description No Information Available Encounters Type Date Location Provider Dx Diagnosis Office Visit 06/15/2019 Orthopaedic Office Stephanie Smiley, M17.12 Unilateral primary 1:15p PA osteoarthritis, left knee Office Visit 06/01/2019 [facility] [place] J06.Geni Acute upper 9:45a Inez Bautista, respiratory BOARDMARKER infection, unspecified Office Visit 04/20/2019 Orthopaedic Office Stephanie Smiley, M17.12 Unilateral primary 8:30a PA osteoarthritis, left knee Office Visit 03/09/2019 Orthopaedic Office Stephanie Smiley, M25.562 Pain in left knee 8:45a PA M17.12 Unilateral primary osteoarthritis, left knee Assessments Date Code Description Provider 06/15/2019 M17.12 Unilateral primary osteoarthritis, Stephaine Smiley PA left knee 06/01/2019 J06.9 Acute upper respiratory infection, Inez Neely, BOARDMARKER unspecified 05/05/2019 M17.12 Unilateral primary osteoarthritis, Stephanie Smiley PA left knee 04/27/2019 M17.12 Unilateral primary osteoarthritis, Stephanie Smiley PA left knee 04/20/2019 M17.12 Unilateral primary osteoarthritis, Stephanie Smiley PA left knee 03/09/2019 M25.562 Pain in left knee Stephanie Smiley PA 03/09/2019 M17.12 Unilateral primary osteoarthritis, Stephanie Smiley PA left knee Plan of Treatment Future Appointment(s):09/15/2019 1:30 pm - Stephanie Smiley PA at [id number]/ - Stephanie Smiley, PAM17.12 Unilateral primary osteoarthritis, left kneeComments:Patient is having some discomfort today. She has done relatively well with the Euflexxa. She wouldlike a repeat steroid injection today.Verbal consent was obtained today for a left knee injection. Patient was injected today into the left knee with 80 mg Depo-Medrol, 4 cc 2% lidocaine, and 2 cc of 0.25% Marcaine after sterile prep with chlorhexidine. Patient tolerated the injection well and was dressed with a Band-Aid. Patient will follow up on an as-needed basis. Functional Status Functional Condition Comment Date Status Independent with all ADL's Active Glasses Active Mental Status Description No Information Available Referrals Description No Information Available
--- OUTSIDE RECORDS SUMMARY | 2019-07-24 17:15 | XMS REPORT | Continuity of Care Document ---
:1950 External Reference #:[id number] Author Name Inez Neely, MIRROR INSPECTOR (transmitted by agent of provider Karly Arthur) Address [address] [place] [phone] Care Team Providers Name Role Phone Chang Patel MD - Family Care Team Information Pocket Operator Medicine Problems Active Problems Provider Date Localized, primary osteoarthritis Stephanie Smiley PA Onset: 03/09/2019 Essential hypertension Ralph Wesley MD Onset: 09/06/2015 Neuralgia Adam Carranza, Onset: 11/18/2012 [place] Incisional hernia Adam Carranza, Onset: 11/18/2012 [place] Preoperative cardiovascular Trell Nowak M.D., Onset: 10/20/2012 examination FACC Hyperlipidemia Lexi Adames, MSN, Onset: 10/05/2012 MIRROR INSPECTOR Benign essential hypertension Lexi Adames, MSN, Onset: 10/05/2012 MIRROR INSPECTOR Malaise and fatigue Lexi Adames, MSN, Onset: 10/05/2012 MIRROR INSPECTOR Electrocardiogram abnormal Lexi Adames, MSN, Onset: 10/05/2012 MIRROR INSPECTOR Social History Type Date Description Comments Sex Unknown Tobacco Use Start: Unknown Never Smoked Cigarettes ETOH Use Denies alcohol use Tobacco Use Start: Unknown Patient has never smoked Recreational Drug Use Denies Drug Use Smoking Status Reviewed: 06/01/19 Patient has never smoked Allergies, Adverse Reactions, Alerts Active Allergies Reaction Severity Comments Date Penicillin 10/05/2012 Sulfa Drugs 10/05/2012 Ceclor 10/05/2012 Medications Active Medications SIG Qnty Indications Ordering Date Provider Fluticasone use 2 sprays in 15.800ml J06.9 [facility], 06/01/2019 Propionate Nasal each nostril in Inez M., [place] Allergy Relief the am MIRROR INSPECTOR 24- Hour 50mcg/Act Suspension Benzonatate take one tab 30caps J06.9 [place], 06/01/2019 100mg orally three Inez M., Capsules times a day as MIRROR INSPECTOR needed for cough Diclofenac Sodium 1 by [...] A Tablets Day For Anxiety Mometasone Furoate [place] Two Sprays Unknown In Each Nostril 50mcg/Act Suspension Daily as Directed Triamcinolone Apply 1-2 Times Unknown Acetonide Daily To Left 0.1% Cream Hand prn For Itch Esomeprazole Take One Capsule Unknown Magnesium By Mouth Every 40mg Capsules Day Progesterone 1 tab by mouth Unknown Micronized every day 200mg Capsules Medications Administered in Office Medication SIG Qnty Indications Ordering Provider Date Euflexxa 2mL prefilled syringe Stephanie Smiley PA 05/05/2019 Injection Euflexxa 2mL prefilled syringe Stephanie Smiley PA 04/27/2019 Injection Euflexxa 2mL prefilled syringe Stephanie Smiley PA 04/20/2019 Injection Depomedrol 40mg/1cc Stephanie Smiley PA 03/09/2019 (methylprednisolone acetate) Injection Immunizations Description No Information Available Vital Signs Date Vital Result Comment 06/01/2019 9:49am BP Systolic 132 mmHg BP Diastolic 77 mmHg Body Temperature 97.9 F Heart Rate 89 /min Respiratory Rate 18 /min Weight 179.50 lb O2 % BldC Oximetry 97 % Pain Level 0 05/05/2019 9:00am BP Systolic 121 mmHg BP Diastolic 83 mmHg Body Temperature 96.9 F Heart Rate 67 /min Height 60 inches 5'0" [place] body weight in kilograms 45 kg O2 % BldC Oximetry 96 % Results Description No Information Available Procedures Date Code Description Status 05/05/2019 Asp./Injection major joint Completed 04/27/2019 Asp./Injection major joint Completed 04/20/2019 Asp./Injection major joint Completed 03/09/2019 22924 Radiology, Knee 3 Views Completed 03/09/2019 Asp./Injection major joint Completed 08/28/2012 [id number] Mammogram Completed Medical Devices Description No Information Available Encounters Type Date Location Provider Dx Diagnosis Office Visit 06/01/2019 [facility] [place] J06.9 Acute upper 9:45a Inez Bautista, respiratory MIRROR INSPECTOR infection, unspecified Office Visit 04/20/2019 Orthopaedic Office Stephanie Smiley, M17.12 Unilateral primary 8:30a PA osteoarthritis, left knee Office Visit 03/09/2019 Orthopaedic Office Stephanie Smiley, M25.562 Pain in left knee 8:45a PA M17.12 Unilateral primary osteoarthritis, left knee Assessments Date Code Description Provider 06/01/2019 J06.9 Acute upper respiratory infection, AlekInez Finn, MIRROR INSPECTOR unspecified 05/05/2019 M17.12 Unilateral primary osteoarthritis, Stephanie Smiley, PA left knee 04/27/2019 M17.12 Unilateral primary osteoarthritis, Stephanie Smiley, PA left knee 04/20/2019 M17.12 Unilateral primary osteoarthritis, Stephanie Smiley, PA left knee 03/09/2019 M25.562 Pain in left knee Stephanie Smiley PA 03/09/2019 M17.12 Unilateral primary osteoarthritis, Baljit Stephanie, PA left knee Plan of Treatment No Information Available Functional Status Functional Condition Comment Date Status Independent with all ADL's Active Glasses Active Mental Status Description No Information Available Referrals Description No Information Available
[2019-07-24 17:27] VITALS: BP 133/48
--- NOTE | 2019-07-24 17:29 | UC ---
Complaint Female HPI - HPI Summary HPI Summary: Seen at [facility] in 07/22 and dx'd w/ UTI and rx' d Nitrofurantoin. she comes in today w/ continued symptoms of dysuria, no vaginal discharge and feeling 'terrible' w/ some back pain. - History Of Current Complaint Chief Complaint: UCGU Stated Complaint: URINARY Time Seen by Provider: 07/24/19 17:27 Hx Obtained From: Patient Hx Last Menstrual Period: N/A Pain Intensity: 5 Pain Scale Used: 0-10 Numeric Character: Sharp Aggravating Factor(s): Urination Alleviating Factor(s): Nothing - Allergies/Home Medications Allergies/Adverse Reactions: Allergies Allergy/AdvReac Type Severity Reaction Status Date / Time Penicillins Allergy Anaphylatic Verified 07/24/19 17:28 Shock Sulfa (Sulfonamide Allergy Hives Verified 07/24/19 17:28 Antibiotics) LATEX POWDER Allergy HIVES FROM Uncoded 07/24/19 17:28 POWDER IN LATEX GLOVES PMH/Surg Hx/FS Hx/Imm Hx Previously Healthy: Yes Cardiovascular History: Cardiac Disease - Surgical History Surgical History: Yes Surgery Procedure, Year, and Place: 1999 LEFT KNEE SCOPE [place]. 2007 C5-6 CERVICAL FUSION [place]. [address] [facility], Abdominal hernia repair 09/17/13,D&C-02/2019, right knee 2016. 07/06/19 total hysterectomy - Family History Known Family History: Positive: Cardiac Disease - Social History Alcohol Use: None Substance Use Type: None Smoking Status (MU): Never Smoked Tobacco Have You Smoked in the Last Year: No - Immunization History Most Recent Influenza Vaccination: 2012 Most Recent Tetanus Shot: 2012 Most Recent Pneumonia Vaccination: 2010 Vaccination Up to Date: Yes Review of Systems All Other Systems Reviewed And Are Negative: Yes Constitutional: Negative: Fever, Chills, Fatigue Gastrointestinal: Negative: Vomiting, Nausea Genitourinary: Positive: Dysuria, Frequency. Negative: Hematuria, Vaginal/ Penile Discharge Musculoskeletal: Positive: Other: - back pain Neurological: Negative: Weakness Physical Exam Triage Information Reviewed: Yes Appearance: Well-Appearing Vital Signs: Initial Vital Signs Temp 97.5 F 07/24/19 17:11 Pulse 77 07/24/19 17:11 Resp 17 07/24/19 17:11 BP 133/48 07/24/19 17:11 Pulse Ox 99 07/24/19 17:11 Vital Signs Reviewed: Yes Respiratory: Positive: No respiratory distress Abdomen Description: Positive: Nontender, Soft. Negative: CVA Tenderness (R), CVA Tenderness (L) Skin: Negative: Rashes Complaint Female Dx - Course Course Of Treatment: UTi symptoms in a pt. that was tx'd w/ Nitrofurantin on 07/22 and continues with symptoms. After review of the culture that was done at [place] it was noted that she was resistant to Nitrofurantin. given her allergies and resistance to antibx it was decided that 3 days of CIPRO would be best. she was amenable and we reviewed risks and side effects of cipro. The urine cx from [facility] was reviewed. Cx showed resistant to nitrofurantoin which is waht she was rx'd. also resistant to cefazolin. sensitive to all other antibx. vitals are good. - Differential Dx/Diagnosis Differential Diagnosis/HQI/PQRI: Urinary Tract Infection, Other Provider Diagnosis: UTI (urinary tract infection) Discharge ED - Sign-Out/Discharge Documenting (check all that apply): Patient Departure All imaging exams completed and their final reports reviewed: No Studies - Discharge Plan Condition: Good Disposition: HOME Prescriptions: Ciprofloxacin TAB* [Cipro 250 MG Tab*] 250 mg PO BID 3 Days #6 tab Patient Education Materials: Urinary Tract Infection in Women (ED) Referrals: Alannah Negron PA [Primary Care Provider] - Additional Instructions: iF WORSENING PLEASE GO TO THE EMERGENCY ROOM - Billing Disposition and Condition Condition: GOOD Disposition: Home - Attestation Statements Provider Attestation: Per institutional requirements, I have reviewed the chart, however, I was not consulted specifically or made aware of this patient by the midlevel provider. I did not personally evaluate, interact with, or disposition this patient. EK
[2019-07-24] MEDS ORDERED: Ciprofloxacin TAB* 250 MG PO ONE (18:17)
[2019-07-24] MEDS ORDERED: Ciprofloxacin TAB* 250 MG ONE (18:23)
== END 2019-07-24 17:58 | disposition home or self-care (01) ==
LOC: UCCORT 17:05
DX: N39.0 Urinary tract infection, site not specified (principal); Z88.0 Allergy status to penicillin; Z88.2 Allergy status to sulfonamides; Z91.040 Latex allergy status
CPT/HCPCS: 99212; A9270-GY; G0463